=== PATIENT | female | born 1970 | race African-American/Black ===

== ENCOUNTER 2022-04-27 16:16 | Emergency (ER) | payer OTHER, SELFPAY ==
--- NOTE | 2022-04-27 16:21 | ED_ITS ---
HPI - Back Pain/Injury General Chief Complaint: Back Pain/Injury <KIRILL aBtes Last Filed: 04/27/22 16:26> Stated Complaint: Lower back pain <KIRILL Bates Last Filed: 04/27/22 16:26> Time Seen by Provider: 04/27/22 17:25 <KIRILL Bates - Last Filed: 04/27/22 16:26> Source: patient <KIRILL Shen Last Filed: 04/27/22 18:53> Mode of arrival: ambulatory <KIRILL Shen Last Filed: 04/27/22 18:53> Limitations: no limitations <KIRILL Shen Last Filed: 04/27/22 18:53> History of Present Illness HPI Narrative: 51 yo female presents to the ER for evaluation of left back pain and left lower extremity pain that started yesterday. Patient reports that she was sitting at her desk and started to develop left lower back pain. Patient reports that the pain has worsened and radiates into her left buttock. She reports that the pain worsens with movement and with palpation. She reports that her job is very sedentary and often sits for 8 hours at a time. She denies any other injury or trauma, or falls. Denies any hematuria or dysuria. Denies any abdominal pain, nausea, vomiting, constipation or diarrhea. Denies any bladder or bowel incontinence. Denies saddle anesthesia. No other complaints or concerns at this time. <KIRILL Shen - Last Filed: 04/27/22 18:53> MD elicited complaint: back pain <KIRILL Shen Last Filed: 04/27/22 18:53> Onset (ago): day(s) <KIRILL Shen Last Filed: 04/27/22 18:53> Timing: constant <KIRILL Shen Last Filed: 04/27/22 18:53> Severity: moderate <KIRILL Shen Last Filed: 04/27/22 18:53> Similar Symptoms Previously: No <KIRILL Shen Last Filed: 04/27/22 18:53> Quality: aching <KIRILL Shen Last Filed: 04/27/22 18:53> Location: left lower back <KIRILL Shen - Last Filed: 04/27/22 18:53> Radiation: none <KIRILL Shen - Last Filed: 04/27/22 18:53> Exacerbating factors: movement <KIRILL Shen - Last Filed: 04/27/22 18:53> Relieving factors: immobilization <KIRILL Shen - Last Filed: 04/27/22 18:53> Associated symptoms: denies other symptoms <KIRILL Shen - Last Filed: 04/27/22 18:53> Work related injury: No <KIRILL Shen - Last Filed: 04/27/22 18:53> Related Data Home Medications: Previous Rx's Medication Instructions Recorded cyclobenzaprine 10 mg tablet 10 mg PO TID PRN muscle spasm #14 04/27/22 tabs ibuprofen 600 mg tablet 600 mg PO Q8H PRN pain #14 tabs 04/27/22 <KIRILL Bates - Last Filed: 04/27/22 16:26> Allergies/Adverse Reactions: Allergies Allergy/AdvReac Type Severity Reaction Status Date / Time lisinopril Allergy Severe Angioedema Uncoded 04/27/22 17:58 <KIRILL Bates - Last Filed: 04/27/22 16:26> Review of Systems Review of Systems: Yes all other systems are reviewed and are negative <KIRILL Shen - Last Filed: 04/27/22 18:53> [facility] Social History Social History: Social History Advance Directives: No Advance Directives Information Provided: No <KIRILL Bates - Last Filed: 04/27/22 16:26> Physical Exam Vital Signs: Vital Signs: Last Vital Signs Temp 98.7 F 04/27/22 16:23 Pulse 120 H 04/27/22 16:23 Resp 18 04/27/22 16:23 BP 152/103 H 04/27/22 16:23 Pulse Ox 99 04/27/22 16:23 O2 Del Method 04/27/22 16:23 BMI result Body Mass Index 35.4 <KIRILL Bates - Last Filed: 04/27/22 16:26> Vital Signs: Last Vital Signs Temp 98.7 F 04/27/22 16:23 Pulse 120 H 04/27/22 16:23 Resp 18 04/27/22 16:23 BP 152/103 H 04/27/22 16:23 Pulse Ox 99 04/27/22 16:23 O2 Del Method 04/27/22 16:23 BMI result Body Mass Index 35.4 <KIRILL Shen - Last Filed: 04/27/22 18:53> Appearance: Alert. Oriented X3. No acute distress. HEENT: normal inspection CVS: Normal heart rate and rhythm. Pulses normal. Respiratory: No respiratory distress. Skin: Skin warm and dry. Normal skin color. Normal skin turgor. No rashes. Extremities: Normal inspection x 4 MSK: No midline spine tenderness. Tenderness to palpation over the left lower soft tissue lumbar area and upper thoracic area. No SI joint tenderness. Neuro: Oriented X 3. No motor deficit. No sensory deficit. <KIRILL Shen - Last Filed: 04/27/22 18:53> Course Course Course Narrative: RME--51yo F w/no sig PMHx c/o left low back pain since yesterday. Admits fell this morning due to leg giving out, denies head trauma or LOC. Denies known back injury/trauma/fall, incontinence or retention, urinary sx In wheelchair in triage. No midline ttp noted, +L lumbar MSK ttp Full eval to be performed by ED provider <KIRILL Bates - Last Filed: 04/27/22 16:26> Reevaluation(s) Reevaluation #1: Patient seen and evaluated. Symptoms consistent with muscle strain. VSS, will treat with toradol IM, lidocaine patch, oxycodone and tylenol in department. <KIRILL Shen - Last Filed: 04/27/22 18:53> Time: 18:23 <KIRILL Shen - Last Filed: 04/27/22 18:53> Medications Administered Discontinued Medications Generic Name Dose Route Start Last Admin Trade Name Freq PRN Reason Stop Dose Admin Acetaminophen 975 mg 04/27/22 17:58 04/27/22 18:21 Acetaminophen 325 Mg Tablet PO 04/27/22 17:59 975 mg ONCE ONE Administration Ketorolac Tromethamine 30 mg 04/27/22 17:58 04/27/22 18:21 Ketorolac Tromethamine 30 Mg/Ml Vial IM 04/27/22 17:59 30 mg ONCE ONE Administration Lidocaine 1 patch 04/27/22 17:58 04/27/22 18:22 Lidocaine 4 % Patch Adh..Patch TRANSDERMA 04/27/22 17:59 1 patch ONCE ONE Administration Protocol Oxycodone HCl 5 mg 04/27/22 17:58 04/27/22 18:22 Oxycodone Hcl Immed Release 5 Mg Tablet PO 04/27/22 17:59 5 mg ONCE ONE Administration <KIRILL Bates - Last Filed: 04/27/22 16:26> Medications Administered Discontinued Medications Generic Name Dose Route Start Last Admin Trade Name Gene PRN Reason Stop Dose Admin Acetaminophen 975 mg 04/27/22 17:58 04/27/22 18:21 Acetaminophen 325 Mg Tablet PO 04/27/22 17:59 975 mg ONCE ONE Administration Ketorolac Tromethamine 30 mg 04/27/22 17:58 04/27/22 18:21 Ketorolac Tromethamine 30 Mg/Ml Vial IM 04/27/22 17:59 30 mg ONCE ONE Administration Lidocaine 1 patch 04/27/22 17:58 04/27/22 18:22 Lidocaine 4 % Patch Adh..Patch TRANSDERMA 04/27/22 17:59 1 patch ONCE ONE Administration Protocol Oxycodone HCl 5 mg 04/27/22 17:58 04/27/22 18:22 Oxycodone Hcl Immed Release 5 Mg Tablet PO 04/27/22 17:59 5 mg ONCE ONE Administration <KIRILL Shen - Last Filed: 04/27/22 18:53> Medical Decision Making Medical Decision Making MDM Narrative: 51-year-old female presents to the emergency department today for evaluation of atraumatic low back pain which started yesterday. Has sedentary job and felt her back pain worsen throughout the day yesterday. No red flag symptoms, no urinary or bowel symptoms. No abdominal pain, N/V/D. Will treat as low back strain with pain medication and muscle relaxers. Advised to follow up with PCP and return with any worsening symptoms. <KIRILL Shen - Last Filed: 04/27/22 18:53> Differential Diagnosis Differential Diagnoses: The differential diagnosis associated with the presentation includes <KIRILL Shen Last Filed: 04/27/22 18:53> Inflammatory disorders, malignancy, trauma, osteoporosis, nerve root compression, radiculopathy, plexopathy, degenerative disc disease, disc herniation, spinal stenosis, sacroiliac joint dysfunction, facet joint injury, and less likely infection?like abscess or diskitis <KIRILL Shen - Last Filed: 04/27/22 18:53> Prescription Management I considered prescription management with: Pain Medication <KIRILL Shen Last Filed: 04/27/22 18:53> Critical Care Time Critical Care Time Critical Care Time: No <KIRILL Shen Last Filed: 04/27/22 18:53> Discharge Plan Discharge Clinical Impression: Strain of lumbar region <KIRILL Bates Last Filed: 04/27/22 16:26> Patient Disposition: Home, Self-Care <KIRILL Bates Last Filed: 04/27/22 16:26> Instructions: Low Back Strain (ED), Acute Low Back Pain (ED), Lower Back Exercises (ED) <KIRILL Bates Last Filed: 04/27/22 16:26> Additional Instructions: Take muscle relaxers as prescribed. Do not drink or drive while taking this medication. Gentle stretching and massage as well as applying hot compresses to your back may help alleviate your pain. If you develop new or worsening symptoms call 911 or come back to the ER for further evaluation. <KIRILL Bates Last Filed: 04/27/22 16:26> Prescriptions: New cyclobenzaprine 10 mg tablet 10 mg PO TID PRN (Reason: muscle spasm) Qty: 14 0RF ibuprofen 600 mg tablet 600 mg PO Q8H PRN (Reason: pain) Qty: 14 0RF <KIRILL Bates Last Filed: 04/27/22 16:26> Stand Alone Forms: Work/School Release <KIRILL Bates Last Filed: 04/27/22 16:26>
[2022-04-27 16:23] VITALS: BP 152/103; PULSE 120; RESP 18; TEMP 37.1; O2SAT 99; BMI 35.4
[2022-04-27] MEDS: Acetaminophen 325 MG TABLET 975 MG PO (18:21)
[2022-04-27] MEDS: Ketorolac Tromethamine 30 MG/ML VIAL IM (18:21)
[2022-04-27] MEDS: oxyCODONE HCl Immed Release 5 MG TABLET PO (18:22)
[2022-04-27] MEDS: Lidocaine 4 % Patch ADH..PATCH 1 PATCH TRANSDERMA (18:22)
== END 2022-04-27 19:01 | disposition home or self-care (01) ==
PROVIDERS: Emergency Provider Emergency Medicine; PCP Nurse Practitioner Family
DX: S39.012A Strain of muscle, fascia and tendon of lower back, initial encounter (principal); X50.1XXA Overexertion from prolonged static or awkward postures, initial encounter; Y93.89 Activity, other specified; Y92.9 Unspecified place or not applicable; Y99.9 Unspecified external cause status
CPT/HCPCS: 96372; 99283; 99284; J1885